=== PATIENT | male | born 1990 | race Caucasian/White ===

== ENCOUNTER 2025-03-10 04:59 | Emergency (ER) | payer OTHER, SELFPAY ==
[2025-03-10 05:04] VITALS: BMI 22.6
[2025-03-10 05:33] VITALS: BP 120/86; PULSE 70; RESP 17; TEMP 36.7; O2SAT 97
--- NOTE | 2025-03-10 06:02 | PD.EDRME ---
Rapid Medical Screening Exam RME Arrival date/time: 03/10/25 04:59 Chief Complaint: General Adult/Misc Complain Vital signs: Vital Signs Temperature 98.0 F 03/10/25 05:33 Pulse Rate 70 03/10/25 05:33 Respiratory Rate 17 03/10/25 05:33 Blood Pressure 120/86 H 03/10/25 05:33 Pulse Oximetry (%) 97 03/10/25 05:33 Oxygen Delivery Method Room Air 03/10/25 05:33 Vital signs reviewed by provider: Yes RME Narrative: 34-year-old male with a past medical history of ulcers and esophageal stricture presents to the ED with a complaint of epigastric pain and right sided anterior chest pain that began approximately 3 days ago. He has had similar pain before and states that he has had to have an endoscopy with dilation of the esophagus. I have greeted and performed a focused initial assessment of this patient. A comprehensive ED assessment and evaluation of the patient, analysis of all test results, and completion of the medical decision making process will be conducted by additional ED providers.
--- NOTE | 2025-03-10 06:05 | XR_ITS ---
Examination: Abdomen sonogram, complete Date and time of exam: March 10, 2020 01/24/2003 hrs. Indications: Onset right upper abdominal pain beginning today. Technique: Multiple real-time grayscale transabdominal sonographic images of the abdomen have been obtained. Findings: Absent gallbladder. Normal common bile duct Pancreas obscured by bowel gas Liver 12.2 cm no liver lesions Normal hepatopedal portal venous flow Patent IVC Impression: Normal common bile duct Liver normal size no focal liver lesions
[2025-03-10] MEDS: LIDOCAINE VISCOUS 2% 15 ML UDC PO (06:35)
[2025-03-10] MEDS: MG HYD/AL HYD/SIME (Maalox Reg) SUSP 30 ML UDC PO (06:35)
[2025-03-10 06:40] LABS: Amphetamine/Methamp Scrn,U Negative (Negative); Barbiturate Screen,Urine Negative (Negative); Benzodiazepines Screen,Urine Negative (Negative); Benzoylecgonine Screen, Ur Negative (Negative); Fentanyl Screen,Urine Negative (Negative); Opiate Screen,Urine Negative (Negative); THC Screen,Urine Negative (Negative)
[2025-03-10 06:48] LABS: Bacteria,Urine Rare; Bilirubin,Urine Negative (Negative); Blood,Urine Negative (Negative); Clarity,Urine Clear (Clear/Hazy); Collection Type, Urine Clean Catch; Color,Urine Lt-Yellow (Lt Yel-Yel); Glucose, Urine Negative (Negative); Ketones,Urine Negative (Negative); Leukocyte Esterase,Urine Positive (Negative); Nitrite,Urine Negative (Negative); Protein,Urine Negative (Neg - Trace); RBC,Urine 1 /hpf (0-3); Squamous Epithelial Cell,Urine < 1 /hpf (0-5); WBC,Urine 24 /hpf (0-5)
[2025-03-10 07:42] LABS: Basophils # (Auto) 0.1 Thou/mm3 (0.0-0.2); Basophils % (Auto) 1 % (0-2.5); Eosinophils # (Auto) 0.3 Thou/mm3 (0.0-0.5); Eosinophils % (Auto) 4 % (0-10); Hematocrit 43.5 % (41.0-53.0); Hemoglobin 15.6 g/dL (13.5-16.0); Immature Granulocytes % (Auto) 0 % (0-0); Immature Granulocytes Auto 0.01 Thou/mm3 (0.00-0.00); Lymphocytes # (Auto) 3.1 Thou/mm3 (1.0-4.8); Lymphocytes % (Auto) 49 % (10-50); Mean Corpuscular HGB Conc 35.9 g/dl (31.0-37.0); Mean Corpuscular Hemoglobin 29.4 pg (25.0-35.0); Mean Corpuscular Volume 82 fL (80-100); Monocytes # (Auto) 0.5 Thou/mm3 (0.0-0.8); Monocytes % (Auto) 7 % (0-12); Neutrophils # (Auto) 2.4 Thou/mm3 (1.8-7.7); Neutrophils % (Auto) 38 % (37-80); Nucleated Red Blood Cell % 0 /100 WBC (0); Platelet Count 294 Thou/mm3 (140-440); RDW Standard Deviation 38.8 fL (35.1-43.9); White Blood Count 6.3 Thou/mm3 (3.8-10.6)
[2025-03-10 08:20] LABS: Alanine Aminotransferase 25 U/L (10-49); Albumin, Serum 4.6 gm/dL (3.5-5.0); Albumin/Globulin Ratio 2.1 (1.2-2.2); Alkaline Phosphatase 78 U/L (46-116); Amylase 33 U/L (30-118); Anion Gap 8 (7-16); Aspartate Amino Transferase 18 U/L (0-34); BUN/Creatinine Ratio 7 Ratio (12-20); Bilirubin,Total 0.5 mg/dL (0.3-1.2); Blood Urea Nitrogen 8 mg/dL (9-23); Carbon Dioxide 29.9 mMol/L (20.0-31.0); Chloride 104 mMol/L (98-107); Creatinine (Component) 1.1 mg/dL (0.6-1.3); Estimated Creatinine Clearance 86.6 mL/min (>60); Globulin 2.2 gm/dL (2.3-3.5); Glucose 89 mg/dL (74-106); Lipase 43 U/L (12-53); Osmolality,Calculated 280 (275-295); Phosphorous 2.9 mg/dL (2.4-5.1); Potassium 3.7 mMol/L (3.4-5.1); Sodium 142 mMol/L (136-145); Total Protein 6.8 gm/dL (5.7-8.2); eGFR > 60 See Note
--- NOTE | 2025-03-10 08:58 | PD.EDADULT ---
ED General RME/HPI General Chief complaint: General Adult/Misc Complain Stated complaint: EPIGASTRIC AND R UPPER CHEST PAIN Time Seen by Provider: 03/10/25 06:23 Arrival date/time: 03/10/25 04:59 Limitations: no limitations RME / HPI RME / HPI narrative: 34-year-old male with a past medical history of ulcers and esophageal stricture presents to the ED with a complaint of epigastric pain and right sided anterior chest pain that began approximately 3 days ago. He has had similar pain before and states that he has had to have an endoscopy with dilation of the esophagus. I have greeted and performed a focused initial assessment of this patient. A comprehensive ED assessment and evaluation of the patient, analysis of all test results, and completion of the medical decision making process will be conducted by additional ED providers. DR. LIGHT MAIN ED EVALUATION: 34 year old male with past medical history significant for GERD, esophageal stricture, and bipolar disorder presents to the Emergency Department with complaints of right-sided anterior chest pain and some problems with his throat. He states that when he drinks water if feels like it stay in his throat and does not go down; however, he drank water and it went down fine. Chest pain is described as throbbing, sharp, and rated moderately. Related Data Home Medications ?Medication ?Instructions ?Recorded ?Confirmed baclofen 5 mg tablet 5 mg PO BID 10/26/21 10/26/21 Previous Rx's ?Medication ?Instructions ?Recorded acetaminophen 500 mg tablet 500 mg PO Q6H PRN fever or pain 10/26/21 (Tylenol Extra Strength) #20 tabs albuterol sulfate 90 mcg/actuation 2 puff inhalation Q6H PRN 10/26/21 aerosol inhaler (Ventolin HFA) shortness of breath or wheezing #8.5 grams hydrocodone 5 mg-acetaminophen 325 1 tab PO BID PRN pain #10 tabs 08/16/22 mg tablet ibuprofen 600 mg tablet 600 mg PO Q6H #30 tabs 08/16/22 ibuprofen 600 mg tablet 600 mg PO Q6H #30 tabs 12/01/22 omeprazole 40 mg capsule,delayed 40 mg PO QDAY #30 caps 02/26/23 release omeprazole 20 mg capsule,delayed 20 mg PO QDAY #30 caps 02/27/23 release Allergies Allergy/AdvReac Type Severity Reaction Status Date / Time [facility] Allergy Severe Seizure Verified 03/10/25 05:12 clonazepam Allergy Severe Dizziness Verified 03/10/25 05:12 Fish Containing Products Allergy Severe Vomiting Verified 03/10/25 05:12 paroxetine Allergy Severe Dizziness Verified 03/10/25 05:12 strawberry Allergy Severe Vomiting Verified 03/10/25 05:12 fluoxetine AdvReac Severe UNSTEADY Verified 03/10/25 05:12 GAIT Review of Systems Review of Systems Systems Reviewed: All systems reviewed, normal except as documented Past Medical History Past Medical History NEUROLOGIC: Positive Seizures CARDIAC: Negative Cardiac Disorders or Congestive Heart Failure RESPIRATORY: Negative Chronic Obstructive Pulmonary Disease (COPD) or Asthma GASTROINTESTINAL: Positive Gastrointestinal Disorders, Pancreatitis, Ulcer and Gastroesophageal Reflux Disease GENITOURINARY: Positive Kidney Stones; Negative Renal Disease MUSCULOSKELETAL: Positive Arthritis; Negative Musculoskeletal Disorders ENT: Positive Blind ENDOCRINE: Positive Diabetes Mellitus Type 2 and Hypoglycemia; Negative Endocrine Disorders or Diabetes Mellitus Type 1 HEMATOLOGIC: Positive Anemia; Negative Blood Disorders or Sickle Cell Disease PSYCHO/SOCIAL: Positive Bipolar Disorder, Anxiety and Attention Deficit Hyperactivity Disorder OTHER HISTORY: Positive Blood Transfusions; Negative Blood Transfusion Reaction, Anesthesia Reactions, Clostridium Difficile or Cancer Family History FAMILY HISTORY: Negative Family Cardiac Disorders Surgical History SURGICAL: Positive Abdominal Surgery Social History SMOKING STATUS: Current some day smoker SUBSTANCE USE: does not use ED Exam General Limitations: Present no limitations General appearance: Present alert and in no apparent distress Head Head exam: Present atraumatic, normocephalic and normal inspection Eye Eye exam: Present normal appearance, PERRL and EOMI ENT ENT exam: Present normal exam, normal oropharynx and mucous membranes moist Neck Neck exam: Present normal inspection, full ROM and trachea midline Chest Chest inspection: Present normal inspection and symmetric chest wall rise Respiratory Respiratory exam: Present normal lung sounds bilaterally Cardiovascular Cardiovascular exam: Present regular rate, normal rhythm and normal heart sounds Abdominal Exam Abdominal exam: Present soft and normal bowel sounds Extremities Exam Extremities exam: Present normal inspection and full ROM Back Exam Back exam: Present normal inspection and full ROM Neurological Exam Neurological exam: Present alert, oriented X3 and CN II-XII intact Psychiatric Psychiatric exam: Present normal affect and normal mood Skin Skin exam: Present warm, dry, intact and normal color Course Quality Measures none Orders Category Date Time Status IV [Insert IV] NOW Care 03/10/25 11:30 Active NPO STAT Care 03/10/25 06:05 Active US abdomen Stat Exams 03/10/25 06:05 Completed Amylase Stat Lab 03/10/25 06:50 Completed CBC Stat Lab 03/10/25 06:50 Completed Comprehensive Metabolic Panel Stat Lab 03/10/25 06:50 Completed Drug Screen,Urine Stat Lab 03/10/25 06:18 Completed Lipase Stat Lab 03/10/25 06:50 Completed Magnesium Stat Lab 03/10/25 06:50 Completed Phosphorous Stat Lab 03/10/25 06:50 Completed Troponin I Stat Lab 03/10/25 06:50 Completed Urinalysis Stat Lab 03/10/25 06:05 Completed Urine Culture Stat Lab 03/10/25 08:56 Received Lidocaine 2% Viscous [Xylocaine 2% Viscous] Med 03/10/25 06:05 Discontinued 15 ml PO X1 ONE Morphine Inj Med 03/10/25 11:18 Discontinued 2 mg IVP X1 ONE Ondansetron Inj [Zofran Inj] Med 03/10/25 11:18 Discontinued 4 mg IVP X1 ONE mg Hyd/Al Hyd/Rosendo Susp [Maalox Susp] Med 03/10/25 06:05 Discontinued 30 ml PO X1 ONE Vital Signs Vital signs: Vital Signs Temperature 98.0 F 03/10/25 05:33 Pulse Rate 70 03/10/25 05:33 Respiratory Rate 17 03/10/25 05:33 Blood Pressure 120/86 H 03/10/25 05:33 Pulse Oximetry (%) 97 03/10/25 05:33 Oxygen Delivery Method Room Air 03/10/25 05:33 Discharge Plan Plan Patient Disposition: HOME (Self Care) Patient condition on transfer: Stable Prescriptions/Referrals Prescriptions/Med Rec: No Action baclofen 5 mg Tablet 5 mg PO BID albuterol sulfate [Ventolin HFA] 90 mcg/actuation HFA aerosol inhaler 2 puff inhalation Q6H PRN (Reason: shortness of breath or wheezing) Qty: 8.5 0RF acetaminophen [Tylenol Extra Strength] 500 mg tablet 500 mg PO Q6H PRN (Reason: fever or pain) Qty: 20 0RF hydrocodone-acetaminophen 5-325 mg tablet 1 tab PO BID MDD 10 PRN (Reason: pain) Qty: 10 0RF ibuprofen 600 mg tablet 600 mg PO Q6H Qty: 30 0RF ibuprofen 600 mg tablet 600 mg PO Q6H Qty: 30 0RF omeprazole 40 mg capsule,delayed release(DR/EC) 40 mg PO QDAY Qty: 30 1RF omeprazole 20 mg capsule,delayed release(DR/EC) 20 mg PO QDAY Qty: 30 0RF Referrals: No Primary/Family,Physician [Primary Care Provider] - In 1 week Problem List Clinical Impression: Atypical chest pain Patient/Caregiver Discharge Instructions Education Materials: ED Chest Pain, Uncertain Cause Additional Instructions: Please follow-up with your primary care physician within a week. Return to the Emergency Department as needed. Print Language: Spanish Stand Alone Forms: Brynn Award Info., Patient Portal Info Letter MDM Narrative [facility] hospital course: I, Hope Gaona, damaris scribing for and in the presence of Dr. Light. Clinical Information Provided by patient Medical Records Reviewed [facility] Meds/Rx Considered, not Ordered None Labs/Rad/Tests considered, not Ordered None Chronic Illness/Social Conditions Add or document further as needed: GERD, esophageal stricture, and bipolar disorder EKG EKG not done Imaging Radiology reports / interpretation(s): Procedure(s): US abdomen Accession Number(s): [id number] cc: Raudel De La Vega MD; NO PRIMARY/FAMILY,PHYSICIAN; Cecy Young PA-C~ Examination: Abdomen sonogram, complete Date and time of exam: March 10, 2020 01/24/2003 hrs. Indications: Onset right upper abdominal pain beginning today. Technique: Multiple real-time grayscale transabdominal sonographic images of the abdomen have been obtained. Findings: Absent gallbladder. Normal common bile duct Pancreas obscured by bowel gas Liver 12.2 cm no liver lesions Normal hepatopedal portal venous flow Patent IVC Impression: Normal common bile duct Liver normal size no focal liver lesions Dictated By: Raudel De La Vega MD Medication Administration(s) Medication Administration History Discontinued Medications Al Hydrox/Mg Hydrox/Simethicone (Mg Hyd/Al Hyd/Rosendo (Maalox Reg) Susp 30 Ml Udc) 30 ml PO X1 ONE Stop: 03/10/25 06:06 Last Admin: 03/10/25 06:35 Dose: 30 ml Documented By: COLLIN Lidocaine HCl (Lidocaine Viscous 2% 15 Ml Udc) 15 ml PO X1 ONE Stop: 03/10/25 06:06 Last Admin: 03/10/25 06:35 Dose: 15 ml Documented By: COLLIN Morphine Sulfate (Morphine Sulf Inj 10 Mg/Ml Vial) 2 mg IVP X1 ONE Stop: 03/10/25 11:19 Last Admin: 03/10/25 11:34 Dose: 2 mg Documented By: Ondansetron HCl (Ondansetron Inj 2 Mg/Ml Inj 2 Ml) 4 mg IVP X1 ONE; Protocol Stop: 03/10/25 11:19 Last Admin: 03/10/25 11:34 Dose: 4 mg Documented By: Diagnosis Differential diagnosis: GERD, esophageal stricture, atypical chest pain Most likely dx, and/or detailed dx discussion: Atypical chest pain Dispositon Disposition: Discharge Home
[2025-03-10 09:00] VITALS: PULSE 60
--- NOTE | 2025-03-10 09:00 | PC.NURSE ---
IN TO ASSESS PT. PT WITH C/O EPIGASTRIC PAIN AND DIFFICULTY SWALLOWING FLUIDS. PT STATES, WHEN I DRINK WATER IT FEELS LIKE IT'S SITTING IN MY THROAT. PT REPORTS SIMILAR EPISODES IN THE PAST. PT WITHOUT FURTHER COMPLAINTS AT THIS TIME. CALL LIGHT PLACED WITHIN REACH. WORK UP IN PROGRESS. PLAN OF CARE ONGOING.
[2025-03-10 09:08] VITALS: BP 148/93; PULSE 57; RESP 17; TEMP 37; O2SAT 100
[2025-03-10 10:00] LABS: Troponin I < 0.020 ng/mL (0.0-0.045)
[2025-03-10 10:15] VITALS: BP 121/81; PULSE 62; RESP 18; TEMP 37; O2SAT 98
--- NOTE | 2025-03-10 11:30 | PC.NURSE ---
PT WITH C/O RIGHT SIDED CHEST PAIN THAT RADIATES TO THE NECK. MADE AWARE.
[2025-03-10] MEDS: MORPHINE SULF INJ 10 MG/ML VIAL 2 MG IVP (11:34)
[2025-03-10] MEDS: ONDANSETRON INJ 2 MG/ML INJ 2 ML 4 MG IVP (11:34)
[2025-03-10 12:00] VITALS: BP 117/84; PULSE 55; RESP 15; TEMP 36.6; O2SAT 96
--- NOTE | 2025-03-10 12:35 | PC.NURSE ---
WENT TO D/C PT, NOTED EKG NOT ORDERED PRIOR TO D/C. MADE AWARE.
[2025-03-10] MEDS: ACETAMINOPHEN 325 MG TABLET 650 MG PO (12:45)
[2025-03-10 12:56] VITALS: BP 123/84; PULSE 65; RESP 16; TEMP 37.1; O2SAT 98
--- NOTE | 2025-03-10 13:15 | PC.NURSE ---
PT LEFT PRIOR TO EKG DONE. MD REQUESTED ME TO CONTACT PT TO RETURN BACK FOR EKG. PT STATES HE WILL GO TO AN ER CLOSE BY HIS HOME BECAUSE HE TOLD THE MD THAT HE HAD CHEST PAIN AND HE STATED HE WAS SENDING HIM HOME . AWARE
== END 2025-03-10 13:00 | disposition home or self-care (01) ==
PROVIDERS: Physician Assistant; Emergency Provider Family Medicine
DX: R07.89 Other chest pain (principal); F31.9 Bipolar disorder, unspecified; K21.9 Gastro-esophageal reflux disease without esophagitis; R10.13 Epigastric pain
CPT/HCPCS: 36415; 76700; 80053; 80307; 81001; 82150; 83690; 83735; 84100; 84484; 85025; 87086; 96374; 96375; 99284; J2270; J2405; J3490; A9270